=== PATIENT | male | born 1955 | race Caucasian/White ===

== ENCOUNTER → 2016-06-28 | Outpatient (CLI) | payer BC ==
[2016-06-28 09:18] LABS: CHLORIDE,CL 104 mmol/L (98-110); SODIUM,NA 139 mmol/L (136-146)
== END ==
LOC: MW.CHFP 08:26
PROVIDERS: ATTEND Emergency Medicine
DX: I10 Essential (primary) hypertension (principal); R73.09 Other abnormal glucose
CPT/HCPCS: 36415; 80048; 83036